=== PATIENT | male | born 1950 | race Caucasian/White ===

== ENCOUNTER → 2017-01-05 | Outpatient (CLI) | payer OTHER, MEDICARE ==
[2017-01-05 08:43] LABS: CHLORIDE,CL 108 mmol/L (98-110); SODIUM,NA 139 mmol/L (136-146)
== END ==
LOC: MW.CHRC 07:59
PROVIDERS: ATTEND Family Medicine
DX: G89.29 Other chronic pain (principal); K76.0 Fatty (change of) liver, not elsewhere classified
CPT/HCPCS: 36415; 80053; 80061; 80305

== ENCOUNTER 2020-06-28 06:33 | Day surgery (SDC) | payer MEDICARE, OTHER ==
[~2020-06-28 06:33] MED LIST: Lactated Ringers 1,000 ML IV SCH; ceFAZolin 2 GM in Premix Bag 1 BAG IV ONE
[2020-06-28] MEDS ORDERED: Propofol 200 MG/20 ML SDV ONE ×2 (06:58→07:04)
[2020-06-28] MEDS ORDERED: Midazolam 1 MG/ML 2 ML SDV ONE ×2 (06:58→07:04)
[2020-06-28] MEDS ORDERED: fentaNYL 100 MCG/2 ML SDV ONE ×2 (06:58→08:35)
[2020-06-28] MEDS ORDERED: Glycopyrrolate 0.2 MG/ML SDV ONE (07:01)
[2020-06-28] MEDS ORDERED: Lidocaine 2% 5 ML SDV ONE (07:01)
[2020-06-28] MEDS ORDERED: Ondansetron 4 MG/2 ML SDV ONE (07:01)
[2020-06-28] MEDS ORDERED: Ketorolac 30 MG/ML SDV ONE (07:01)
--- NOTE | 2020-06-28 07:17 | PCM.PREANE ---
Preanesthetic Assessment - Anesthesia/Transfusion/Family Hx Anesthesia History: Prior Anesthesia Without Reaction Family History of Anesthesia Reaction: No Transfusion History: No Prior Transfusion(s) - Review of Systems General: No Symptoms Pulmonary: No Symptoms Cardiovascular: No Symptoms Gastrointestinal: No Symptoms Neurological: No Symptoms Other: Reports: None - Physical Assessment NPO Status Date: 06/27/20 Vital Signs: Last Vital Signs Temp 97.7 F 06/28/20 07:00 Pulse 53 L 06/28/20 07:00 Resp 16 06/28/20 07:00 BP 129/59 L 06/28/20 07:00 Pulse Ox 96 06/28/20 07:00 Height: 5 ft 7 in Weight: 74.389 kg ASA Class: 2 Mental Status: Alert & Oriented x3 Airway Class: Mallampati = 2 Dentition: Reports: Edentulous ROM/Head Extension: Full Lungs: Clear to Auscultation, Normal Respiratory Effort Cardiovascular: Regular Rate, Regular Rhythm - Allergies Allergies/Adverse Reactions: Allergies Allergy/AdvReac Type Severity Reaction Status Date / Time No Known Allergies Allergy Verified 06/22/20 11:28 - Blood Blood Available: No - Acknowledgements Anesthesia Type Planned: General Anesthesia (lma unless surgeon requests muscle paralysis) Pt an Appropriate Candidate for the Planned Anesthesia: Yes Alternatives and Risks of Anesthesia Discussed w Pt/Guardian: Yes Pt/Guardian Understands and Agrees with Anesthesia Plan: Yes Additional Comments: pmh: smoker, chronic LBP with chronic opioid use (will have tolerance and hyperalgesia) PLAN: ga/lma unless surgeon requests paralysis PreAnesthesia Questionnaire HEENT History: Reports: Other (See Below) Other HEENT History: uses reading glasses, has upper and lower dentures Musculoskeletal History: Reports: Back Pain, Chronic, Osteoarthritis - Past Surgical History Head Surgeries/Procedures: Reports: None Neurological Surgical History: Reports: Lumbar Spine, Spinal Fusion Other Neurological Surgeries/Procedures: has 2 rods and screws in lower back - SUBSTANCE USE Smoking Status *Q: Current Every Day Smoker Tobacco Use Within Last Twelve Months: Cigarettes Recreational Drug Use History: No - HOME MEDS Home Medications: Home Meds Multivitamin [Multivitamins] 1 cap PO DAILY 06/22/20 [History] oxyCODONE 5 - 15 mg PO Q3H PRN 06/22/20 [History] oxyCODONE HCl [Oxycodone HCl ER] 20 mg PO BID 06/22/20 [History] - CURRENT (IN HOUSE) MEDS Current Meds: Current Medications Acetaminophen 1,000 mg/ Premix 100 mls @ 400 mls/hr IV NOW ONE Stop: 06/28/20 10:35 Lactated Ringer's (Ringers, Lactated) 1,000 mls @ 125 mls/hr IV ASDIRECTED SANIA Last Admin: 06/28/20 07:09 Dose: 125 mls/hr Documented by: Pregabalin (Lyrica) 150 mg PO DAILY ONE Stop: 06/28/20 09:01 Discontinued Medications Fentanyl (Sublimaze) Confirm Administered Dose 100 mcg .ROUTE .STK-MED ONE Stop: 06/28/20 06:59 Glycopyrrolate (Robinul) Confirm Administered Dose 0.2 mg .ROUTE .STK-MED ONE Stop: 06/28/20 07:02 Cefazolin Sodium/Dextrose 2 gm (/ Premix) 50 mls @ 100 mls/hr IV ONETIME ONE Stop: 06/27/20 10:44 Ketorolac Tromethamine (Toradol) Confirm Administered Dose 30 mg .ROUTE .STK-MED ONE Stop: 06/28/20 07:02 Lidocaine (Xylocaine-Mpf 2%) Confirm Administered Dose 5 ml .ROUTE .STK-MED ONE Stop: 06/28/20 07:02 Midazolam HCl (Versed 1 Mg/Ml) Confirm Administered Dose 2 mg .ROUTE .STK-MED ONE Stop: 06/28/20 06:59 Midazolam HCl (Versed 1 Mg/Ml) Confirm Administered Dose 2 mg .ROUTE .STK-MED ONE Stop: 06/28/20 07:05 Ondansetron HCl (Zofran) Confirm Administered Dose 4 mg .ROUTE .STK-MED ONE Stop: 06/28/20 07:02 Propofol (Diprivan 20 Ml) Confirm Administered Dose 200 mg .ROUTE .STK-MED ONE Stop: 06/28/20 06:59 Propofol (Diprivan 20 Ml) Confirm Administered Dose 600 mg .ROUTE .STK-MED ONE Stop: 06/28/20 07:05
[2020-06-28] MEDS ORDERED: Bupivacaine 0.5% 30 ML SDV ONE (07:24)
[2020-06-28] MEDS ORDERED: Octyl 2-Cyanoacrylate 1 Tube ONE (07:24)
[2020-06-28] MEDS ORDERED: Bupivacaine 0.5% 10 ML SDV ONE (07:26)
[2020-06-28] MEDS ORDERED: Pregabalin 75 MG Cap PO ONE (07:41)
[2020-06-28] MEDS ORDERED: Bupivacaine 25%/EPINEPHrine/PF 30 ML ONE (07:54)
[2020-06-28] MEDS ORDERED: Sodium Chloride 0.9% 20 ML ONE (08:06)
[2020-06-28] MEDS ORDERED: ceFAZolin 1 GM Vial ONE (08:06)
[2020-06-28] MEDS ORDERED: Ketamine 500 mg/10 ML MDV ONE (08:20)
[2020-06-28] MEDS ORDERED: Phenylephrine 1% 10 MG/ML SDV ONE (09:02)
[2020-06-28] MEDS ORDERED: fentaNYL 100 MCG/2 ML SDV IVPUSH PRN (09:46)
[2020-06-28] MEDS ORDERED: Acetaminophen 1,000 MG in Premix Bag 1 BAG IV ONE (10:21)
--- NOTE | 2020-06-28 10:22 | PCM.OPNOTE ---
- General Post-Op/Procedure Note Date of Surgery/Procedure: 06/28/20 Operative Procedure(s): Open left inguinal hernia repair Findings: left inguinal hernia with omentum. dictation number [id number] Pre Op Diagnosis: incarcerated Left inguinal hernia. Post-Op Diagnosis: incarcerated left inguinal hernia Anesthesia Technique: General LMA Primary Surgeon: Crow Rodrigues Pathology: Hernia sac and omentum EBL in mLs: 10 Complications: None Condition: Good
--- NOTE | 2020-06-28 10:36 | PCM.POSTAN ---
POST ANESTHESIA ASSESSMENT - MENTAL STATUS Mental Status: Alert, Oriented - VITAL SIGNS Vital Signs: Last Vital Signs Temp 98.2 F 06/28/20 10:10 Pulse 62 06/28/20 10:31 Resp 12 06/28/20 10:31 BP 119/47 L 06/28/20 10:31 Pulse Ox 96 06/28/20 10:31 - RESPIRATORY Respiratory Status: Respiratory Rate WNL, Airway Patent, O2 Saturation Stable - CARDIOVASCULAR CV Status: Pulse Rate WNL, Blood Pressure Stable - GASTROINTESTINAL GI Status: No Symptoms - POST OP HYDRATION Hydration Status: Adequate & Stable
--- NOTE | 2020-06-28 12:41 | PCM48HPAN ---
Post Anesthesia Note - EVALUATION WITHIN 48HRS OF ANESTHETIC Vital Signs in Normal Range: Yes Patient Participated in Evaluation: Yes Respiratory Function Stable: Yes Airway Patent: Yes Cardiovascular Function Stable: Yes Hydration Status Stable: Yes Pain Control Satisfactory: Yes Nausea and Vomiting Control Satisfactory: Yes Mental Status Recovered: Yes Vital Signs: Last Vital Signs Temp 97.9 F 06/28/20 10:40 Pulse 54 L 06/28/20 11:30 Resp 14 06/28/20 11:30 BP 97/54 L 06/28/20 11:30 Pulse Ox 94 L 06/28/20 11:30
--- NOTE | 2020-06-28 14:01 | OR ---
SURGEON: SUMANTH HAMPTON MD DATE OF PROCEDURE: 06/28/2020 PREOPERATIVE DIAGNOSIS: Incarcerated left inguinal hernia. POSTOPERATIVE DIAGNOSIS: Incarcerated left inguinal hernia. PROCEDURE PERFORMED: Open left inguinal hernia repair with mesh. PRIMARY SURGEON: Sumanth Hampton MD ANESTHESIA: General. FINDINGS: The patient did have an indirect inguinal hernia with a large amount of omentum in the hernia sac. SPECIMENS: Hernia sac and part of omentum. ESTIMATED BLOOD LOSS: 10 mL. REASON FOR PROCEDURE: The patient is a pleasant 70-year-old gentleman who says he has had a left inguinal hernia since he was at least a teenager, maybe longer. It has not really bothered him. It has always been large. However, he says over the last 2 or 3 months, he has noticed another bulge coming up above it. He is always able to reduce that one. It does cause him discomfort. The patient would like to have his left inguinal hernia repaired. I did go over the risks, goals, and alternatives of the hernia repair which include, but not limited to, bleeding, infection, mesh infection, recurrence, hematoma, seroma, injury to spermatic cord and possible testicle damage, nerve entrapment, chronic pain, scar formation. The patient understands, and he wishes to proceed. PROCEDURE NARRATIVE: The patient was brought back to the OR. He was prepped and draped in usual fashion. SCDs placed. Preoperative antibiotics were given. Anesthesia provided by the Anesthesia team. After a time-out was performed an oblique incision was made over the inguinal canal, using the pubic tubercle as a guide for the medial end of the incision. This was carried down through Tanisha's and the external oblique, which was carefully opened with the ilioinguinal nerve preserved. The hernia sac and spermatic cord were then encircled at the level of pubic tubercle with blunt dissection. Now, the hernia sac was carefully brought up. It was still adhesed down in the scrotum, but with some gentle dissection was brought up. The hernia sac was completely from cord structures manuela to the level of the internal inguinal ring. Again, I was unable to reduce the hernia sac contents into the abdomen. Because of this, the hernia sac was opened. The contents were examined, did appear to be omentum. Because it had been down in the scrotum so long, the distal end of the omentum had firmed into a more firm ball. The hernia defect actually was fairly small. Because of this, I used ligature to remove about half of the omentum, There was good hemostasis. Now, the rest of the omentum did easily go into the abdominal cavity. Now, the base of the hernia sac was then sutured with a silk for high ligation and transected. Both the omentum and hernia sac were sent to pathology. Again, the area was inspected. There was good hemostasis. A Bard mesh PerFix [id number] system was placed. Plug was not used. The mesh did lie nicely over the defect. It was sutured in place, medially at the pubic tubercle, lateral to into the muscle beyond the external ring, inferiorly to the selfing edge of the inguinal ligament, and superiorly to the conjoint tendon. It lay nice and flat. There was good coverage. The internal ring in the mesh was checked and it did not appear to be too tight. The external oblique fascia was then closed with 2-0 Vicryl making surge the external ring was not too tight. The remaining of the local was injected into the fascia and to do an ilioinguinal nerve block. Now, Tanisha fascia was closed with interrupted 3-0 Vicryl and the skin was closed with 4-0 Monocryl. At the end of the case, sponge and needle counts were correct and both testicles were at scrotum. The patient was transferred to recovery room in stable condition. BRUCE MORELOS /[id number] FARHANA
== END 2020-06-28 12:45 | disposition home or self-care (01) ==
LOC: MW.SDS 06:33
PROVIDERS: ATTEND Surgery
DX: K40.30 Unilateral inguinal hernia, with obstruction, without gangrene, not specified as recurrent (principal); G89.29 Other chronic pain; F17.210 Nicotine dependence, cigarettes, uncomplicated; Z79.891 Long term (current) use of opiate analgesic
CPT/HCPCS: 49507; A9270; J0690; J1885; J2001; J2250; J2370; J2405; J2704; J3490; J7120; 00830; J3010